=== PATIENT | female | born 1940 | race Caucasian/White ===

== ENCOUNTER → 2020-03-07 11:56 | Outpatient (CLI) | payer MEDICARE, BC | END | disposition home or self-care (01) | LOC: D.LAB 11:56 | PROVIDERS: ATTEND Internal Medicine Cardiovascular Disease | DX: Z11.59 Encounter for screening for other viral diseases (principal) ==

== ENCOUNTER → 2020-03-10 09:30 | Outpatient (CLI) | payer MEDICARE, BC | END | disposition home or self-care (01) | LOC: D.RT 09:30 | PROVIDERS: ATTEND Internal Medicine Cardiovascular Disease | DX: Z11.59 Encounter for screening for other viral diseases (principal); R06.00 Dyspnea, unspecified ==

== ENCOUNTER 2020-03-17 12:26 | Inpatient (IN) | payer MEDICARE, BC ==
[~2020-03-17] VITALS: Ht 152.4 cm; Wt 88.2 kg
[2020-03-17] MEDS ORDERED: ELAVIL25 MG PO (12:53)
[2020-03-17] MEDS ORDERED: JANTOVEN5 MG PO (12:54)
[2020-03-17] MEDS ORDERED: ZANAFLEX4 MG PO (12:54)
[2020-03-17] MEDS ORDERED: OMEPRAZOLE40 MG PO (12:55)
[2020-03-17] MEDS ORDERED: TRIAMTERENE-HC1 EAC3 PO (12:58)
[2020-03-17 15:39] LABS: ALBUMIN 3.5 g/dL (3.4-5.0); ANION GAP 17.5 mmol/L (8-16); CALCIUM 8.8 mg/dL (8.5-10.1); CARBON DIOXIDE 21.4 mmol/L (21.0-32.0); CREATININE - SERUM 1.1 mg/dL (0.6-1.3); POTASSIUM - SERUM 3.9 mmol/L (3.5-5.1); PROTEIN - SERUM 7.2 g/dL (6.4-8.2)
[2020-03-17 15:42] LABS: BILIRUBIN - TOTAL 0.07 mg/dL (0.2-1.3)
[2020-03-17 16:01] LABS: HEMATOCRIT 36.1 % (36.0-48.0); HEMOGLOBIN 11.3 g/dL (12-16); MCH 27.6 pg (26.0-34.0); MCHC 31.3 g/dL (31.0-37.0); MCV 88.3 fL (80.0-100.0); MEAN PLATELET VOLUME 10.3 fL (7.4-10.4); RBC 4.09 10x6/uL (4.00-5.40); RDW 16.7 % (11.5-14.5); WBC 9.9 10x3/uL (4.8-10.8)
[2020-03-17 16:08] LABS: BILIRUBIN NEGATIVE (NEGATIVE); KETONE NEGATIVE (NEGATIVE); NITRITE NEGATIVE (NEGATIVE); UROBILINOGEN NORMAL mg/dL (< 2)
[2020-03-17 16:17] LABS: APTT 41.9 SECONDS (22.8-39.4); INR 1.81 (0.85-1.17); PROTIME 20.8 SECONDS (11.6-15.0)
[2020-03-21] VITALS (40 sets, daily range): BP systolic 68–156; BP diastolic 28–60; BMI 31.3
[2020-03-21 09:41] LABS: APTT 31.3 SECONDS (22.8-39.4); INR 1.17 (0.85-1.17); PROTIME 14.8 SECONDS (11.6-15.0)
--- NOTE | 2020-03-21 19:57 | NUR ---
1330-NOTED BLOCKED SB OCC-ANESTHESIOLOGIST STATED FREQUENT PRIOR TO OR AND DECREASED AT THIS TIME-PT AWAKE AND CRYING OF SEVERE PAIN TO R SHOULDER-EPIDURAL TURNED ON BY ANESTHESIA-INFORMED PT POSITIONING OF R ARM DURING SURGERY CAUSE OF SAME-R JUGULAR IV IN PLACE-CHEST TUBE TO WALL SUCTION-NO AIR LEAK AT THIS TIME 1340-PORT CXR DONE-NOTED CONTINUED BLOCKED SB WITH INCREASE IN FREQUENCY-12 LEAD EKG DONE-REFERRED TO SAME BLOCKED PAC BEATS-CONTINUED SEVERE SHOULDER PAIN-AL PAOLA-RNA NOTIFIED-TORADOL 30MG IVP-CONT BLOCKED SB WITH DECREASED ABP-112 SYS-NITRO INFUSION TURNED OF -[facility] Kalina DORSEY RN NOTIFIED AND SAME INFORMED DR SORTO-DOPAMINE GTT STARTED DIRECTED 1406-NOTED HR 52-12 LEAD REPEATED AND SEEN MOBITZ 2-CARDIOLOGY CONSULT AND PG'D STAT-PT NAUSEATED AND STATES EXTREME HEAT-R SHOULDER PAIN REMAINS-ZOFRAN 4MG IVP GIVEN EPIDURAL ANCHORER USED-DR PRABHAKAR PG'D STAT-1407 HR 48-RETURN CALL DR PRABHAKAR RECIEVED UPDATED WITH CURRENT STATUS-NOTED HR 76-83-74-ABP 68/28-ATROPINE 0.5MG IVP GIVEN-[facility]-RN AT BEDSIDE-NOTIFIED DR SORTO OF CURRENT-DOPAMINE AT 7.5MCG-MARJAN GTT STARTED AND SE AT 0.2 FOR 60 MEAN GOAL-ANESTHESIA CREW ARRIVED AT BEDSIDE-TO FURTHER ADDRESS AND TREAT SITUATION-EPIDURAL TURNED OFF BY SAME -CURRENTLY SR WITH CONTINUED FREQUENT BLOCKED SB-CARDIOLOGY AT BEDSIDE-[employer] OPERATOR-STATUS REPORT AND 12 LEADS [id number]-IN IVY AT BEDSIDE-MARJAN TURNED OFF-ABP-133/43-HR 73 SR -PT STATES EXTREME HEAT RELIEVED-STATES R SHOULDER PAIN LESSENED-SONS BROUGHT TO BEDSIDE AND CURRENT STATUS REPORT GIVEN 1600-ANESTHESIA AT BEDSIDE TO REVIEW STATUS-PT STATED R LATERAL CHEST PAIN INCREASED-EPIDURA RESUMED AT 5ML-NO ANCHORER OPTION 1744-PT STATED R SHOULDER PAIN CONTINUES -ANESTHESIA NOTIFIED -MORPHINE 2MG QIH FOR BREAK THRU PAIN-PT REQUESTING BLANKETS AND FLUIDS 1844-CONTINUES OCC BLOCKED SB
[2020-03-22] VITALS (35 sets, daily range): BP systolic 108–162; BP diastolic 44–72; Ht 152.4 cm; Wt 88.2 kg
[2020-03-22 05:58] LABS: HEMATOCRIT 31.1 % (36.0-48.0); HEMOGLOBIN 9.3 g/dL (12-16); MCHC 29.9 g/dL (31.0-37.0); MCV 90.4 fL (80.0-100.0); MEAN PLATELET VOLUME 9.6 fL (7.4-10.4); RBC 3.44 10x6/uL (4.00-5.40); RDW 16.5 % (11.5-14.5); WBC 9.3 10x3/uL (4.8-10.8)
[2020-03-22 06:20] LABS: ALBUMIN 2.7 g/dL (3.4-5.0); ANION GAP 12.7 mmol/L (8-16); BILIRUBIN - TOTAL 0.17 mg/dL (0.2-1.3); CALCIUM 7.6 mg/dL (8.5-10.1); CARBON DIOXIDE 22.1 mmol/L (21.0-32.0); CREATININE - SERUM 1.2 mg/dL (0.6-1.3); POTASSIUM - SERUM 3.8 mmol/L (3.5-5.1); PROTEIN - SERUM 6.7 g/dL (6.4-8.2)
--- NOTE | 2020-03-22 10:02 | NUR ---
DOPAMINE OFF. LESS THAN 10 CC HOUR OUT OF BOTH CHEST TUBES.
[2020-03-22 15:13] LABS: FUNGUS STAIN Final report (())
[2020-03-22 18:09] LABS: ACID FAST SMEAR Negative (()); AFB SPECIMEN PROCESSING Concentration (())
[2020-03-23] VITALS (23 sets, daily range): BP systolic 119–159; BP diastolic 45–74
[2020-03-23 05:12] LABS: HEMATOCRIT 31.7 % (36.0-48.0); HEMOGLOBIN 9.7 g/dL (12-16); MCH 27.6 pg (26.0-34.0); MCHC 30.6 g/dL (31.0-37.0); MCV 90.3 fL (80.0-100.0); MEAN PLATELET VOLUME 9.7 fL (7.4-10.4); RBC 3.51 10x6/uL (4.00-5.40); RDW 16.2 % (11.5-14.5)
[2020-03-23 05:15] LABS: WBC 13.3 10x3/uL (4.8-10.8)
[2020-03-23 06:03] LABS: ANION GAP 13.9 mmol/L (8-16); CREATININE - SERUM 1.3 mg/dL (0.6-1.3); POTASSIUM - SERUM 3.9 mmol/L (3.5-5.1)
[2020-03-23 06:08] LABS: ALBUMIN 2.3 g/dL (3.4-5.0); BILIRUBIN - TOTAL 0.23 mg/dL (0.2-1.3); PROTEIN - SERUM 6.6 g/dL (6.4-8.2)
--- NOTE | 2020-03-23 15:02 | NUR ---
SPOKE WITH GABINO LINCOLN ABOUT EPIDURAL. NO FURTHER ORDERS AT THIS TIME.
--- NOTE | 2020-03-23 15:50 | NUR ---
ART LINE REMOVED PER MD ORDER. GABINO LINCOLN CRNA HERE IN TO SEE PATIENT AND CHANGE EPIDURAL BAG. PATIENT IS MORE AWAKE AT THIS TIME. 50ML OF BAG OF FENTANYL WASTED.
[2020-03-24] VITALS (49 sets, daily range): BP systolic 91–152; BP diastolic 42–72
[2020-03-24 06:08] LABS: HEMATOCRIT 29.2 % (36.0-48.0); MCH 27.7 pg (26.0-34.0); MCHC 30.8 g/dL (31.0-37.0); MCV 89.8 fL (80.0-100.0); MEAN PLATELET VOLUME 10.2 fL (7.4-10.4); RBC 3.25 10x6/uL (4.00-5.40); RDW 15.9 % (11.5-14.5); WBC 11.9 10x3/uL (4.8-10.8)
[2020-03-24 06:22] LABS: ALBUMIN 1.9 g/dL (3.4-5.0); ANION GAP 16.3 mmol/L (8-16); BILIRUBIN - TOTAL 0.33 mg/dL (0.2-1.3); CALCIUM 8.2 mg/dL (8.5-10.1); CARBON DIOXIDE 20.3 mmol/L (21.0-32.0); POTASSIUM - SERUM 3.6 mmol/L (3.5-5.1); PROTEIN - SERUM 6.3 g/dL (6.4-8.2)
[2020-03-24 06:23] LABS: CREATININE - SERUM 1.8 mg/dL (0.6-1.3)
--- NOTE | 2020-03-24 07:50 | NUR ---
SHIFT ASSESSMENT COMPLETED. SMALL AIRLEAK PRESENT IN AIR LEAK CHAMBER. NO TIDALING PRESENT.
--- NOTE | 2020-03-24 10:32 | OP ---
PATIENT NAME: OMAIRA HUTSON MEDICAL RECORD: [id number] :44 LOCATION:[facility] ADMISSION DATE:03/21/20 SURGEON: MAISHA SORTO MD DATE OF OPERATION: 03/21/2020 SURGEON: Maisha Sorto MD PROCEDURES PERFORMED: 1. Right thoracoscopy with wedge resection, right lower lobe. 2. Bronchoscopy. PREOPERATIVE DIAGNOSIS: Right lower lobe lung mass. POSTOPERATIVE DIAGNOSIS: Granuloma with abscess, right lower lobe. ANESTHESIA: Double-lumen general endotracheal anesthesia and epidural. SPECIMENS: Wedge resection, right lower lobe. COMPLICATIONS: None. CONDITION: Stable. DISPOSITION: CVICU BLOOD LOSS: Minimal. OPERATIVE FINDINGS: Adhesions of the lower lobe to the diaphragm and posterior chest taken down sharply and working through the small utility thoracotomy with direction of the thoracoscopy, wedge resection was performed and on the back table, the specimen was cut. About 2 mL of creamy white pus was found and cultures were taken, frozen section benign. The patient had no air leak intraoperatively. Small air leak on positive pressure ventilation. OPERATIVE INDICATION: Enlarging right lower lobe lung mass, positive PET scan. PROCEDURE IN DETAIL: The patient was brought to the operative suite. General anesthesia was obtained with bronchoscopy confirming good position. The patient was turned to left lateral decubitus position with appropriate padding including axillary roll. Anterior working port for the scope was placed. The lung was deflated. The chest was visualized. No apical adhesions, but the lower lobe had some significant adhesions. Therefore, a utility thoracotomy was made just over the lower lobe at the site of the mass and working with the scope, the adhesions were taken down sharply. Then, the free edge of the lower lobe posteriorly was grasped, staple lines were placed, and the mass was removed. On the back table, the specimen was cut. In the field, Progel was placed along the edge of the wound after thorough irrigation and then chest tubes were placed. The wound was closed with 2 muscle layers, 2 subcutaneous subcuticular. The patient to CVICU stable. NTS:[id number] Voice Confirmation ID: [id number] DOCUMENT ID: [id number] OPERATIVE REPORT [id number] OMAIRA HUTSON MAISHA SORTO MD at 1032 CC: SAVAGE READ MD [id number] DICTATION DATE: 03/21/20 1315 NETWORK LEAD: 03/21/20 223 ADM IN [facility] [address] [place] [address]
--- NOTE | 2020-03-24 11:40 | NUR ---
DR. FLORES HERE. CHEST TUBES TO REMAIN ONE MORE DAY. LACEY WITH ANESTHESIA NOTIFIED TO DECREASE EPIDURAL FROM 7ML/HR TO 5ML/HR. ENCOURAGING FLUIDS DUE TO LOW URINE OUTPUT.
--- NOTE | 2020-03-24 12:00 | NUR ---
LUNCH TRAY SERVED. FOOD AND FLUIDS OFFERED BUT PATIENT IS VERY SEDATED. 0% CONSUMED.
--- NOTE | 2020-03-24 14:00 | NUR ---
COMPLETE CHG BEDBATH GIVEN. SHIVERING AND VERY SEDATED. TEMP 98.8 ORALLY. MOANS AND C/O OF PAIN WITH TOUCH TO SKIN.
--- NOTE | 2020-03-24 14:50 | NUR ---
DR. FLORES NOTIFIED OF SEDATED STATE, SHIVERING AND INCREASED SEDATION. ORDER TO CONSULT WITH ANESTHESIA FOR SEDATION. ANESTHESIA HERE. EPIDURAL TURNED OFF.
--- NOTE | 2020-03-24 15:42 | NUR ---
Nutrition Follow-up: Diet: Regular PO intake: ~18% average x last 3 meals. Spoke with patient at bedside. She states that her appetite is "not good." She was unable to answer the rest of my questions because she kept falling asleep. She had eaten very little of her lunch tray in front of her at time of my visit. Last BM: none since admit. Wt: 162# (03/22/20); Admit Wt: 162# (03/21/20) Meds noted: NS@50. Labs noted: Na 134(L), GFR 29(L), Glu 72(L), ALb 1.9(L) Recommend continue current diet as able. Will add Ensure TID with meals. Encourage PO intake. RD following.
--- NOTE | 2020-03-24 16:00 | NUR ---
OPENING EYES MORE FREQUENTLY NOW. MUMBLING REPLYS TO QUESTIONS. BLOWS INTO DRINKING STRAW INSTEAD OF SUCKING.
--- NOTE | 2020-03-24 18:15 | NUR ---
SKIN HOT. TEMP 103.[address] FLORES NOTIFIED OF TEMP, SOMNOLENCE, POOR COUGH AND IS EFFORTS. ORDERS RECEIVED.
--- NOTE | 2020-03-24 18:20 | NUR ---
DR. MAYNARD CALLED FOR CONSULT. BACKGROUND GIVEN AND ORDERS RECEIVED. RESPIRATORY NOTIFIED.
--- NOTE | 2020-03-24 19:30 | NUR ---
REPORT REC'D AND CARE ASSUMED, ASSISTED OFF GOING NURSE TO ADMINISTER A TYLENOL SUPPOSITORY FOR TEMP 103.2, SM LIQUID BROWN STOOL NOTED, PATIENT CLEANED AND SUPPOSITORY GIVEN, PT REPOSITIONED UP IN BED, COOL CLOTH TO FOREHEAD, THERMOSTAT TURNED DOWN IN ROOM, FAN ON, RIGHT POSTERIOR DRSG CDI, RIGHT LATERAL CTS TO 20CM H2O SUCTION, SM AIR LEAK, SEROUS DRAINAGE PRESENT, RINCON PATENT DRAININ YELLOW URINE WITH SEDIMENT, TEDS AND SCDS, PPP, AIR OVERLAY MATTRESS IN USE, SR UP X 2, CALL LIGHT IN REACH.
--- NOTE | 2020-03-24 19:45 | NUR ---
EPIDURAL TAPED SECURELY TO BACK, TURNED OFF PER ANESTHESIA FOR PT SOMNOLENCE
--- NOTE | 2020-03-24 20:00 | NUR ---
PT TALKING TO PEOPLE NOT IN ROOM, WHEN CALLED BY NAME ANSWERS YES AND NO QUESTIONS APPROPRIATELY, FOLLOWING COMMANDS, REMAINS CONFUSED, TEMP 99.4 ORALLY AT THIS TIME, WILL CONT TO MONITOR CLOSELY FOR CHANGES.
--- NOTE | 2020-03-24 22:45 | NUR ---
PT CALLING OUT, I NEED HELP, EPIDURAL REMAINS OFF, CM-UCAF 120, BP 121/66, O2 SAT 92% ON 5LITER NC, WHEN ASKED STATES " I CAN'T BREATH TOO GOOD", NC REMAINS IN NOSE, RT AT BS FOR BREATHING TX, HAVING TO KEEP PATIENT FROM PULLING BREATHING TX OFF, REMAINS CONFUSED.
--- NOTE | 2020-03-24 23:15 | NUR ---
PT WANTING TO KNOW IF SHE CAN TURN, ASSISTED TO TURN ONTO RIGHT SIDE SUPPORTED WITH PILLOW, TEMP 101.0 AT THIS TIME, WILL REPEAT TYLENOL WHEN TIME, VSS.
[2020-03-25] VITALS (23 sets, daily range): BP systolic 101–147; BP diastolic 48–70
--- NOTE | 2020-03-25 02:20 | NUR ---
PT YELLING "SOMEBODY HELP ME", PT WANTING TO GET OOB, EXPLAINED TO PATIENT SHE COULD NOT GET OOB AT THIS TIME, PLACED ON BEDPAN, CALL LIGHT IN REACH.
--- NOTE | 2020-03-25 02:40 | NUR ---
PT REMOVED FROM BEDPAN NO RESULTS NOTED, SM AMOUNT LIQUID BROWN STOOL NOTED ON PAD, PARTIAL BATH AND LINEN CHANGE PROVIDED, PT REPOSITIONED FOR COMFORT, CONFUSED, ATTEMPTED TO REORIENT AT THIS TIME.
--- NOTE | 2020-03-25 03:00 | NUR ---
REASSESSMENT, PT STATES " I NEED TO POTTY" PLACED ON BEDPAN, PT HAD SMALL LIQUID BROWN STOOL, PAD CHANGED, PT REPOSITIONED UP IN BED FOR COMFORT, WILL CONT TO MONITOR FOR CHANGES.
[2020-03-25 06:43] LABS: ALBUMIN 1.8 g/dL (3.4-5.0); ANION GAP 18.6 mmol/L (8-16); BILIRUBIN - TOTAL 0.25 mg/dL (0.2-1.3); CARBON DIOXIDE 17.4 mmol/L (21.0-32.0); PROTEIN - SERUM 6.4 g/dL (6.4-8.2)
[2020-03-25 06:44] LABS: CREATININE - SERUM 2.4 mg/dL (0.6-1.3)
[2020-03-25 07:02] LABS: HEMATOCRIT 29.6 % (36.0-48.0); HEMOGLOBIN 9.2 g/dL (12-16); MCH 27.7 pg (26.0-34.0); MCHC 31.1 g/dL (31.0-37.0); MCV 89.2 fL (80.0-100.0); MEAN PLATELET VOLUME 10.4 fL (7.4-10.4); RBC 3.32 10x6/uL (4.00-5.40); RDW 16.1 % (11.5-14.5)
[2020-03-25 07:03] LABS: WBC 8.8 10x3/uL (4.8-10.8)
--- NOTE | 2020-03-25 10:00 | NUR ---
INCONT OF LIQUID BROWN STOOL. PERICARE AND MOISTURE BARRIER APPLIED PATIENT TOLERATED FAIR.
--- NOTE | 2020-03-25 13:08 | NUR ---
ANESTHESIA CALLED TO PULL EPIDURAL
--- NOTE | 2020-03-25 13:55 | NUR ---
PICC LINE PULLED PER RENEE CHIRINOS 45 CM REMOVED. PATIENT TOLERATED FAIR.
--- NOTE | 2020-03-25 21:00 | NUR ---
EVENING MEDS GIVEN AND PT PLACED ON BEDPAN PER REQUEST
--- NOTE | 2020-03-25 21:15 | NUR ---
PARTIAL BATH AND LINEN CHANGE PROVIDED, PT HAD LIQUID BROWN STOOL, PERICARE PROVIDED AND PT REPOSITIONED UP IN BED FOR COMFORT, DENIES PAIN OR OTHER NEEDS.
[2020-03-26] VITALS (23 sets, daily range): BP systolic 117–155; BP diastolic 52–75
--- NOTE | 2020-03-26 01:00 | NUR ---
PT INCONTINENT OF MODERATE LIQUID BROWN STOOL, PARTIAL BATH AND LINEN CHANGE PROVIDED, PT REPOSITIONED UP IN BED AND SR UP X 2, CALL LIGHT IN REACH, DENIES FURTHER NEEDS.
[2020-03-26 04:50] LABS: BILIRUBIN NEGATIVE (NEGATIVE); KETONE NEGATIVE (NEGATIVE); NITRITE NEGATIVE (NEGATIVE); UROBILINOGEN NORMAL mg/dL (< 2); WHITE CELLS - URINE 0-5 HPF (0-4)
--- NOTE | 2020-03-26 05:30 | NUR ---
COMPLETE CHG BATH AND LINEN CHANGE PROVIDED, LIQUID BROWN STOOL NOTED, TEDS SOILED, BOUDREAUXS BUTT PASTE APPLIED TO COCCYX/BUTTOCKS, PT [id number] OF LEG PAIN WHEN STAFF TOUCHES LEGS, REPOSITIONED UP IN BED, PT REQUESTING ICE, ICE CHIPS AND DT COKE PROVIDED, PT DENIES FURTHER NEEDS.
[2020-03-26 06:24] LABS: HEMATOCRIT 28.1 % (36.0-48.0); HEMOGLOBIN 8.8 g/dL (12-16); MCH 27.2 pg (26.0-34.0); MCHC 31.3 g/dL (31.0-37.0); MEAN PLATELET VOLUME 10.7 fL (7.4-10.4); RBC 3.23 10x6/uL (4.00-5.40); RDW 16.1 % (11.5-14.5); WBC 7.5 10x3/uL (4.8-10.8)
--- NOTE | 2020-03-26 06:55 | NUR ---
PT INCONTINENT OF SM MUCUS TYPE STOOL, PARTIAL BATH AND LINEN CHANGE PROVIDED, PT DENIES FURTHER NEEDS.
[2020-03-26 07:08] LABS: ALBUMIN 1.7 g/dL (3.4-5.0); ANION GAP 17.3 mmol/L (8-16); BILIRUBIN - TOTAL 0.17 mg/dL (0.2-1.3); CALCIUM 8.1 mg/dL (8.5-10.1); CARBON DIOXIDE 17.9 mmol/L (21.0-32.0); MAGNESIUM - SERUM 1.5 mg/dL (1.8-2.4); PHOSPHOROUS 4.6 mg/dL (2.5-4.9); PROTEIN - SERUM 6.5 g/dL (6.4-8.2)
[2020-03-26 07:09] LABS: POTASSIUM - SERUM 3.2 mmol/L (3.5-5.1)
--- NOTE | 2020-03-26 21:39 | NUR ---
CHEKO PIMENTEL PAGERyne, RETURNED CALL. REPORTED POSITIVE C-DIFF RESULT. FLAGYL 500MG Q8HRS IV ORDERED. PT IN ISOLATION PRIOR TO SHIFT CHANGE.
[2020-03-27] VITALS (19 sets, daily range): BP systolic 104–140; BP diastolic 53–71
[2020-03-27 06:27] LABS: BASOPHILS 0.2 % (0-2); EOSINOPHILS 3.5 % (0-7); HEMATOCRIT 26.7 % (36.0-48.0); HEMOGLOBIN 8.4 g/dL (12-16); IMMATURE GRANULOCYTES 0.5 % (0-5); LYMPHOCYTES 14.5 % (15-50); MCH 27.4 pg (26.0-34.0); MCHC 31.5 g/dL (31.0-37.0); MEAN PLATELET VOLUME 10.2 fL (7.4-10.4); MONOCYTES 7.7 % (2-11); NEUTROPHILS 73.6 % (40-80); PLATELET COUNT 189 10x3/uL (130-400); RBC 3.07 10x6/uL (4.00-5.40); RDW 16.2 % (11.5-14.5); WBC 6.4 10x3/uL (4.8-10.8)
--- NOTE | 2020-03-27 06:30 | NUR ---
PT INCONTINENT OF BLADDER UNABLE TO COLLECT URINE. NO BM NOTED. CHG BATH GIVEN. PT UP TO CHAIR. TOLERATED WELL
--- NOTE | 2020-03-27 06:30 | NUR ---
PT PLACED ON BED CASTRO PER REQUEST. NO BM NOTED FLATULENCE NOTED
[2020-03-27 06:31] LABS: ALBUMIN 1.6 g/dL (3.4-5.0); BILIRUBIN - TOTAL 0.22 mg/dL (0.2-1.3); CALCIUM 8.6 mg/dL (8.5-10.1); CREATININE - SERUM 1.6 mg/dL (0.6-1.3); MAGNESIUM - SERUM 1.3 mg/dL (1.8-2.4); PROTEIN - SERUM 6.2 g/dL (6.4-8.2)
[2020-03-27 06:32] LABS: ANION GAP 16.8 mmol/L (8-16)
[2020-03-27 06:33] LABS: POTASSIUM - SERUM 2.8 mmol/L (3.5-5.1)
--- NOTE | 2020-03-27 11:05 | NUR ---
DR SORTO AT THE PTS BEDSIDE. PT PREMEDICATED WITH MORPHINE PER DR SORTO. CT'S PULLED PER DR SORTO AND DRESSING APPLIED. CALL LIGHT IN REACH. WILL CONT POC.
--- NOTE | 2020-03-27 13:04 | NUR ---
Nutrition Follow-up: POD 6 RLL resection. In enteric isolation; Cdiff Ag +. Poor PO intake recorded over the weekend. Diet: Regular, Ensure TID PO intake: 13% avg x 6 meals Wt: 189.5# (03/26) Labs noted: K+ 2.8, Mg 1.3, Alb 1.6 Meds noted: Questran, Florajen, NS @ 50, Protonix, electrolyte protocol -Encourage PO intake and honor food preferences within diet restrictions. -Monitor wt. -RD following.
--- NOTE | 2020-03-27 13:31 | NUR ---
PT ASSISTED TO THE BEDSIDE COMMODE AND HAD A LARGE SEMI FORMED BM. PT CLEANED AND HELPED BACK INTO HER BEDSIDE CHAIR.
[2020-03-28] VITALS (22 sets, daily range): BP systolic 109–165; BP diastolic 47–81
[2020-03-28 06:13] LABS: BASOPHILS 0.2 % (0-2); HEMATOCRIT 25.4 % (36.0-48.0); IMMATURE GRANULOCYTES 0.3 % (0-5); MCH 27.8 pg (26.0-34.0); MCHC 31.5 g/dL (31.0-37.0); MCV 88.2 fL (80.0-100.0); MEAN PLATELET VOLUME 10.1 fL (7.4-10.4); MONOCYTES 7.1 % (2-11); NEUTROPHILS 65.4 % (40-80); PLATELET COUNT 205 10x3/uL (130-400); RBC 2.88 10x6/uL (4.00-5.40); RDW 16.3 % (11.5-14.5); WBC 6.3 10x3/uL (4.8-10.8)
--- NOTE | 2020-03-28 06:34 | NUR ---
CHG BATH GIVEN WITH RINCON CARE. PT UP TO CHAIR, TOLERATED WELL.
[2020-03-28 06:38] LABS: ALBUMIN 1.6 g/dL (3.4-5.0); ANION GAP 13.8 mmol/L (8-16); BILIRUBIN - TOTAL 0.24 mg/dL (0.2-1.3); CALCIUM 8.5 mg/dL (8.5-10.1); CARBON DIOXIDE 21.3 mmol/L (21.0-32.0); CREATININE - SERUM 1.5 mg/dL (0.6-1.3); MAGNESIUM - SERUM 1.5 mg/dL (1.8-2.4); POTASSIUM - SERUM 3.1 mmol/L (3.5-5.1)
--- NOTE | 2020-03-28 10:01 | NUR ---
PT AMBULATING WITH PHSICAL THERAPY. SEE PT NOTES.
[2020-03-28 10:33] LABS: INR 1.04 (0.85-1.17); PROTIME 13.6 SECONDS (11.6-15.0)
[2020-03-28] MEDS ORDERED: SYMBICORT 16010.2 GM INH (10:56)
[2020-03-28] MEDS ORDERED: VIBRAMYCIN 100100 MG PO (10:57)
[2020-03-28] MEDS ORDERED: FLAGYL500 MG PO (10:58)
[2020-03-28] MEDS ORDERED: MUCINEX600 MG PO (11:01)
--- NOTE | 2020-03-28 14:54 | NUR ---
REHAB PRESCREENING Rehab referral received and chart reviewed. Ms. Bang is a good candidate for acute inpatient rehab. The lining caser stated she does not want rehab and chooses to go home. Rehab will continue to follow this patient at this time. Thank you for this referral! Yani Infante, RN ADMISSIONS Rehab PD
--- NOTE | 2020-03-28 23:25 | MORECARE ---
CASE MANAGEMENT DISCHARGE SUMMARY PATIENT: OMAIRA HUTSON UNIT: [id number] ADM DATE: 03/21/20 AGE: 79 : 42 SEX: F [facility] AUTHOR: DRU MARCH PHYSICIAN: REFERRING PHYSICIAN: MAISHA SORTO MD DATE OF SERVICE: 03/28/20 Discharge Plan Patient Name: OMAIRA HUTSON [facility] 1940 Planned Disposition: Home with Home Health Anticipated Discharge Date: Discharge Date: Expected LOS: Initial Reviewer: [email or web address] Initial Review Date: 03/21/2020 Generated: 03/29/20 12:24 am DCP- Discharge Planning Updated by [email or web address]: Tiffani Olson on 03/24/20 6:[address] CM attempted to meet with patient regarding discharge planning / needs. Patient was very drowsy and unable to speak with CM. CM will meet with patient at a later date for d/c planning / needs. Patient Name: OMAIRA HUTSON Page [id number] at 2325 All edits/amendments must be made on the electronic document DICTATION DATE: 03/28/202323 DIE INSPECTOR: ERMIAS 03/28/202323 RPT#: [id number] DC DATE: STATUS: ADM IN [facility] [address] [place] [address] END OF REPORT
[2020-03-29] VITALS (11 sets, daily range): BP systolic 122–166; BP diastolic 56–89
--- NOTE | 2020-03-29 03:00 | NUR ---
PT UP TO CHAIR PER REQUEST. PT TO XRAY AND RETURNED TO BED.
[2020-03-29 06:00] LABS: BASOPHILS 0.2 % (0-2); EOSINOPHILS 5.4 % (0-7); HEMATOCRIT 30.2 % (36.0-48.0); HEMOGLOBIN 9.4 g/dL (12-16); IMMATURE GRANULOCYTES 0.4 % (0-5); LYMPHOCYTES 20.5 % (15-50); MCH 27.6 pg (26.0-34.0); MCHC 31.1 g/dL (31.0-37.0); MCV 88.8 fL (80.0-100.0); MEAN PLATELET VOLUME 9.9 fL (7.4-10.4); MONOCYTES 10.7 % (2-11); NEUTROPHILS 62.8 % (40-80); PLATELET COUNT 197 10x3/uL (130-400); RDW 16.1 % (11.5-14.5); WBC 5.2 10x3/uL (4.8-10.8)
[2020-03-29 06:26] LABS: ALBUMIN 1.8 g/dL (3.4-5.0); BILIRUBIN - TOTAL 0.25 mg/dL (0.2-1.3); CALCIUM 8.3 mg/dL (8.5-10.1); CARBON DIOXIDE 20.5 mmol/L (21.0-32.0); POTASSIUM - SERUM 3.5 mmol/L (3.5-5.1); PROTEIN - SERUM 6.3 g/dL (6.4-8.2)
[2020-03-29 06:31] LABS: CREATININE - SERUM 1.1 mg/dL (0.6-1.3)
--- NOTE | 2020-03-29 08:45 | NUR ---
O2 OFF FOR ASSESSMENT ON RA. SPO2 MAINTAINING AT 95 TO 99% DENIES SOB.
--- NOTE | 2020-03-29 10:00 | NUR ---
RINCON CATHETER REMOVED. NO CONTINUED VALID REASON.
--- NOTE | 2020-03-29 11:10 | NUR ---
UP TO BEDSIDE COMMODE. VOIDED 400, SMALL AMOUNT OF LOOSE BROWN BM.
--- NOTE | 2020-03-29 12:45 | NUR ---
SON ASSISTED TO BSC. INCONTINENT OF SOME URINE WHILE GETTING UP. VOIDED 300ML. PARTIAL BATH AND GOWN CHANGED.
[2020-03-29 13:11] LABS: IMMUNOGLOBULIN E 307 IU/mL (6-495)
[2020-03-29] MEDS ORDERED: PERCOCET 5-3251 TAB PO (13:30)
--- NOTE | 2020-03-29 13:33 | NUR ---
Nutrition Follow-up: Good/fair PO intake. Diet: Regular, Ensure TID PO intake: 50-80% yesterday Wt: 194# (03/28) Last BM: 03/29 Labs noted: Ca 8.3, Mg 1.0, Alb 1.8 Meds noted: Coumadin, KDur, Florajen, Protonix, electrolyte protocol -Encourage PO intake and honor food preferences within diet restrictions. -Monitor wt. -RD following.
--- NOTE | 2020-03-29 14:15 | NUR ---
DISCHARGE ORDERS RECEIVED. RIGHT SC TLC REMOVED USING STANDARD PROCEDURE. OCCLUSIVE DRESSING OF BETADINE OINTMENT, 4X4 STERILE, AND TEGADERM APPLIED. INSTRUCTION TO LEAVE IN PLACE UNTIL TOMORROW.
--- NOTE | 2020-03-29 14:50 | NUR ---
DISCHARGE INSTRUCTIONS GIVEN. PATIENT STATES SHE HAS CALLED HER PHARMACY AND TOLD THEM NOT TO FILL INHALER DUE TO COST. DISCHARGED HOME VIA WHEELCHAIR TO PRIVATE CARE WITH SON.
--- NOTE | 2020-03-29 19:22 | MORECARE ---
CASE MANAGEMENT DISCHARGE SUMMARY PATIENT: OMAIRA HUTSON UNIT: [id number] ADM DATE: 03/21/20 AGE: 79 : 42 SEX: F ROOM/BED: [facility] AUTHOR: DRU MARCH PHYSICIAN: REFERRING PHYSICIAN: MAISHA SORTO MD DATE OF SERVICE: 03/29/20 Discharge Plan Patient Name: OMAIRA HUTSON Facility: [facility]:[place] : 1940 Planned Disposition: Home with Home Health Anticipated Discharge Date: Discharge Date: 03/29/2020 Expected LOS: Initial Reviewer: [email or web address] Initial Review Date: 03/21/2020 Generated: 03/29/20 8:22 pm DCP- Discharge Planning Updated by [email or web address]: Tiffani Olson on 03/24/20 6:[address] CM attempted to meet with patient regarding discharge planning / needs. Patient was very drowsy and unable to speak with CM. CM will meet with patient at a later date for d/c planning / needs. Last DP export: 03/28/20 10:25 p Patient Name: OMAIRA HUTSON Page 25252 at 1922 All edits/amendments must be made on the electronic document DICTATION DATE: 03/29/201921 PERSONNEL PSYCHOLOGIST: ERMIAS 03/29/201921 RPT#: [id number] DC DATE:03/29/20 STATUS: DIS IN [facility] [address] [place] [address] END OF REPORT
--- NOTE | 2020-03-29 19:30 | MORECARE ---
CASE MANAGEMENT DISCHARGE SUMMARY PATIENT: OMAIRA BANG UNIT: [id number] ADM DATE: 03/21/20 AGE: 79 : 42 SEX: F RO[facility]BED: [facility] AUTHOR: JOAQUIM,DRU PHYSICIAN: REFERRING PHYSICIAN: MAISHA SORTO MD DATE OF SERVICE: 03/29/20 Discharge Plan Patient Name: MOAIRA BANG Facility: [facility]:[place] : 1940 Planned Disposition: Home with Home Health Anticipated Discharge Date: Discharge Date: 03/29/2020 Expected LOS: Initial Reviewer: [email or web address] Initial Review Date: 03/21/2020 Generated: 03/29/20 8:29 pm Comments DCP- Discharge Planning Updated by [email or web address]: Tiffani Olson on 03/29/20 6:[address] Patient Name: OMAIRA BANG Encounter No: [id number] : 1940 Primary Insurance: MEDICARE A & B Anticipated DC Date: Planned Disposition: Home External Planned Provider: : Patient to see PCP for HH needs. D/C IMM completed DCP follow-up note: Patient and family in agreement with discharge plan. No changes to plan. Case management will follow and assist as needed. Tiffani Olson DCP- Discharge Planning Updated by [email or web address]: Tiffani Olson on 03/29/20 6:[address] LATE ENTRY 03/28/20 Patient Name: OMAIRA BANG Admission Status: Urgent Accout number: [id number] Admission Date: 03-21-2020 : 1940 Admission Diagnosis:SOLITARY PULMONARY NODULE Attending: MAISHA SORTO Current LOS: 8 Anticipated DC Date: Planned Disposition: Home with Home Health Primary Insurance: MEDICARE A & B Discharge Planning Comments: CM met with patient to complete initial dc planning assessment. CM educated patient on the CM role and verbal consent given by patient to complete assessment. Patient lives at home alone. Patient is independent. At discharge patient plans to return home and feels this is a safe discharge. CM discussed availability of home health, rehab services, and medical equipment. Patient has no preference in HH or DME. Patient refused rehab. OTTONIEL completed Patient will have family to transport home. Patient denied known discharge needs at this time. CM will continue to follow and will assist as needed with dc plans/needs. Surveillance Systems Engineer: Tiffani Olson DCP- Discharge Planning Updated by [email or web address]: Tiffani Olson on 03/24/20 6:[address] CM attempted to meet with patient regarding discharge planning / needs. Patient was very drowsy and unable to speak with CM. CM will meet with patient at a later date for d/c planning / needs. DCPIA - Discharge Planning Initial Assessment Updated by [email or web address]: Tiffani Olson on 03/29/20 7:22 pm * Is the patient Alert and Oriented? Yes * How many steps to enter\exit or inside your home? * PCP Marie Swenson * Pharmacy Power * Preadmission Environment Home Alone * ADLs Independent * Equipment Walker * List name and contact numbers for known caregivers / representatives who currently or will assist patient after discharge: Fani Bang - [phone] * Verbal permission to speak to the caregivers and representatives has been obtained from the patient. Yes * Community resources currently utilized None * Additional services required to return to the preadmission environment? No * Can the patient safely return to the preadmission environment? Yes * Has this patient been hospitalized within the prior 30 days at any hospital? No Last DP export: 03/29/20 6:22 p Patient Name: OMAIRA BANG Page [id number] at 1930 All edits/amendments must be made on the electronic document DICTATION DATE: 03/29/201928 FACILITY MANAGER: ERMIAS 03/29/201928 RPT#: [id number] DC DATE:03/29/20 STATUS: DIS IN [facility] [address] [place] [address] END OF REPORT
== END 2020-03-29 14:50 | disposition home or self-care (01) | DRG 163 ==
LOC: D.SDCHOLD 03-21 07:30 → D.CVICU 03-21 07:45 → D.SDCHOLD 03-21 07:45 → D.CVICU 03-21 14:00
PROVIDERS: Anesthesiology; Family Medicine; Internal Medicine Pulmonary Disease; ADMIT Thoracic Surgery (Cardiothoracic Vascular Surgery); ATTEND Thoracic Surgery (Cardiothoracic Vascular Surgery)
PROC: 0BBF4ZZ Excision of Right Lower Lung Lobe, Percutaneous Endoscopic Approach (ICD-10-PCS; principal; 2020-03-21 11:25)
DX: R91.1 Solitary pulmonary nodule (principal); G93.41 Metabolic encephalopathy; J98.11 Atelectasis; N17.9 Acute kidney failure, unspecified; E87.2 Acidosis; M25.511 Pain in right shoulder; I44.1 Atrioventricular block, second degree; K21.9 Gastro-esophageal reflux disease without esophagitis; M19.90 Unspecified osteoarthritis, unspecified site; D64.9 Anemia, unspecified; F17.200 Nicotine dependence, unspecified, uncomplicated

== ENCOUNTER → 2020-04-05 12:12 | Outpatient (CLI) | payer MEDICARE, BC ==
[2020-03-22 12:32] VITALS: BMI 32.5
[~2020-04-05 12:12] MED LIST: ELAVIL25 MG PO; FLAGYL500 MG PO; JANTOVEN5 MG PO; MUCINEX600 MG PO; OMEPRAZOLE40 MG PO; PERCOCET 5-3251 TAB PO; SYMBICORT 16010.2 GM INH; TRIAMTERENE-HC1 EAC3 PO; VIBRAMYCIN 100100 MG PO; ZANAFLEX4 MG PO
== END | disposition home or self-care (01) ==
LOC: D.RAD 12:12
PROVIDERS: ATTEND Thoracic Surgery (Cardiothoracic Vascular Surgery)
DX: Z98.890 Other specified postprocedural states (principal)